=== PATIENT | male | born 1975 | race Caucasian/White ===

== ENCOUNTER 2021-12-18 15:07 | Outpatient (CLI) | payer OTHER, SELFPAY ==
--- NOTE | 2021-12-18 15:57 | XR_ITS ---
WS: [id number] Exam: XR shoulder RT min 2V* [id number] Date/Time of Exam: 12/18/2021 4:02 PM Reason For Exam: INJURY OF RIGHT SHOULDER, JOINT PAIN The projections of the shoulder reveal no fractures, anomalies, soft tissue swelling, or calcificatio ns. There is normal bony alignment. No irregularity of the bony architecture is noted. XR/XR shoulder RT min 2V* [id number] IMPRESSION: Negative right shoulder.
== END 2021-12-18 15:08 | disposition home or self-care (01) ==
LOC: RAD 15:19
PROVIDERS: Family Provider Nurse Practitioner; PCP Nurse Practitioner; Visit Provider Family Medicine
DX: S49.91XA Unspecified injury of right shoulder and upper arm, initial encounter (principal); M25.511 Pain in right shoulder; X58.XXXA Exposure to other specified factors, initial encounter
CPT/HCPCS: 73030

== ENCOUNTER 2022-01-21 10:29 | Outpatient (CLI) | payer OTHER, SELFPAY ==
--- NOTE | 2022-01-21 10:46 | MR_ITS ---
WS: [id number] MRI RIGHT SHOULDER NONCONTRAST TECHNIQUE: Sagittal T2, coronal T1, T2 and proton density imaging. Axial gradient PDE imaging. CLINICAL INFORMATION: R SHOULDER PAIN/UNSPECIFIED INJURY OF R SHOULDER UPPER ARM COMPARISON: None. FINDINGS: Moderate degenerative arthritis at the AC joint. Small amount of subacromial/subdeltoid fluid. Slight subacromial spurring. Impingement on the distal supraspinatus. Mild chronic atrophy of the distal dyer praspinatus. Tendinopathy in the distal supraspinatus. Small insertional tear involving the anterior lateral supraspinatus. Normal infraspinatus and teres minor. Normal subscapularis. Small amount of fluid in the subcoracoid bursa. Normal biceps tendon in the bicipital groove. Grossly normal glenoid labrum. MR/MR shoulder RT wo con* [id number] IMPRESSION: 1. Moderate degenerative arthritis AC joint with mild edema and mild downslopi ng of the acromion. Slight impingement distal supraspinatus with tendinopathy. Chronic thinning of the supraspinatus. 2. Small insertional tear at the anterior lateral supraspinatus. 3. Normal infraspinatus. Normal teres minor. Normal subscapularis. 4. Normal biceps tendon in the bicipital groove. 5. No other acute findings.
== END 2022-01-21 10:30 | disposition home or self-care (01) ==
PROVIDERS: PCP Nurse Practitioner; Visit Provider Family Medicine
DX: S49.91XA Unspecified injury of right shoulder and upper arm, initial encounter (principal); M25.511 Pain in right shoulder; M19.011 Primary osteoarthritis, right shoulder; M75.101 Unspecified rotator cuff tear or rupture of right shoulder, not specified as traumatic; X58.XXXA Exposure to other specified factors, initial encounter
CPT/HCPCS: 73221

== ENCOUNTER → 2022-01-31 14:25 | Outpatient (BNVA) | payer OTHER, SELFPAY | PROVIDERS: PCP Nurse Practitioner; Referring Provider Family Medicine; Visit Provider Nurse Practitioner Family | DX: M25.511 Pain in right shoulder (principal) | CPT/HCPCS: 73030 ==

== ENCOUNTER 2022-03-28 08:52 | Day surgery (SDC) | payer OTHER, SELFPAY ==
[2022-03-27 14:19] VITALS: BMI 26.2
[2022-03-28] VITALS (13 sets, daily range): BP systolic 131–149; BP diastolic 85–108; PULSE 71–98; RESP 15–18; TEMP 36.2–36.6; O2SAT 94–100
[2022-03-28] MEDS: sodium chloride 0.9% 1,000 ML 30 ML IV (09:14)
[2022-03-28] MEDS: acetaminophen 500 mg Tablet 1000 MG PO (09:17)
--- NOTE | 2022-03-28 09:30 | ANES.PREANE2 ---
Pre-Anesthetic Assessment Height/Weight: Height 1.8 m Weight 85.275 kg Temp Pulse Resp BP Pulse Ox O2 Del Method 97.6 F 71 17 149/108 100 03/28/22 09:04 03/28/22 09:04 03/28/22 09:04 03/28/22 09:04 03/28/22 09:04 03/28/22 09:04 Preop Diagnosis: Rotator cuff tear Right shoulder Operation Date: 03/28/22 10:30 Proposed Procedures p right shoulder arthroscopy with rotator cuff repair/ [id number],M75.121(Right) - Russell Martinez MD s Rotator Cuff Repair(Right) - Russell Martinez MD Familial anesthetic complications: None Was Beta Maldonado taken within 24 hours: N/A Was Clonidine taken within 24 hours: N/A Last intake: Intake Last Liquid Date 03/27/22 Last Liquid Time 19:30 Last Solid Date 03/27/22 Last Solid Time 19:30 Social Tobacco and No alcohol Exam alert, oriented x 3, clear to auscultation bilaterally and regular rate & rhythm Airway Mallampati: Class II Dentition: full Anesthetic Plan ASA status: 1 Anesthesia: General and Regional (specify below) Risk of > 500 ml blood loss (7ml/kg in children): No Medications/Allergies Home Medications Medication Instructions Recorded Confirmed Last Taken Type No Known Home Medications 03/28/22 03/28/22 Unknown History Allergies Allergy/AdvReac Type Severity Reaction Status Date / Time Penicillins Allergy Mild rash Verified 03/19/22 08:02 Current Medications Generic Name Dose Route Start Last Admin Trade Name Freq PRN Reason Stop Dose Admin Sodium Chloride 1,000 mls @ 30 mls/hr 03/28/22 09:00 03/28/22 09:14 Sodium Chloride 0.9% IV 03/29/22 08:59 30 mls/hr .Q24H JUAN Administration PFSH Anesthesia Social History Smoking and tobacco status: current every day smoker Data Anesthesia Cardiac Studies: No Data to Display
--- NOTE | 2022-03-28 09:31 | ANES.PROC ---
Anesthesia Procedures Procedure/Date: 03/28/22 Nerve Block ^: Nerve Block 1: Main Anesthesia: general anesthesia Time Out Performed: Yes Consent: requested by attending/covering physician, from patient, risks and benefits reviewed and patient agrees to proceed Nerve block location: interscalene (R) Anesthesia monitors applied: pulse oximetry Anesthetic Used: ropivicaine 0.5% (20 mg) and with decadron (4 mg) Ultrasound used to: recognize landmarks, visualize and ID brachial plexus and visualize and ID interscalene groove Nerve Stimulator Used?: No Interscalene/Femoral BLK: 2 stimuplex 22 g needle used for position and inplane approach, visualize local anesthetic spread and no vascular puncture identified Injection: neg aspiration of heme and paresthesia +/- (Patient expierenced anesthesia twice in hand w/ advancement of of needle past middle scalene. No parasthesias experience during injection) Patient Tolerated Procedure: well Complications: none
--- NOTE | 2022-03-28 09:47 | W.PM.OPSUD ---
Surgery/Procedure H&P Update DATE OF PROCEDURE: March 28, 2022 DATE H&P PERFORMED: 03/19/22 H&P UPDATE INFORMATION: I have reviewed H&P completed within last 30 days PREOP DIAGNOSIS: Rotator cuff tear Right shoulder PLANNED PROCEDURE: Operation Date: 03/28/22 10:30 Proposed Procedures p right shoulder arthroscopy with rotator cuff repair/ [id number],M75.121(Right) - Russell Martinez MD s Rotator Cuff Repair(Right) - Russell Martinez MD
[2022-03-28] MEDS: ceFAZolin 2,000 MG in sodium chloride 0.9% (plus) 50 ML 100 MG IV (10:06)
--- NOTE | 2022-03-28 12:05 | P.OP_ITS ---
Operative Report Date of procedure: March 28, 2022 Pre-op diagnosis: Preop Diagnosis Rotator cuff tear Right shoulder Post-op diagnosis: same Post-op diagnosis: Full-thickness tear right rotator cuff, instability right biceps tendon Procedure done: Arthroscopic right rotator cuff repair, arthroscopic subacromial decompression, arthroscopic assisted biceps tenodesis Implants: White and Nephew Helicoil 4.5 mm anchors x2, White and Nephew Multifix 5.5 mm anchor x1, Q fix anchors x2 Pathology: none sent Surgeon: Russell Martinez Anesthesia: General Estimated blood loss (mL): 20 Findings: The patient had a full-thickness tear of his right rotator cuff in the central portion of the supraspinatus tendon approximately a centimeter and a half from anterior to posterior with a centimeter retraction superiorly and minimal retraction articularly. The subscapularis was a free of tearing the biceps tendon could be dislocated out of the bicipital groove with a probe intra- articularly. Its attachment was healthy. His humeral head and glenoid were free of chondromalacia. Patient had a prominent curvature to his anterior acromion creating a very tight subacromial space. The decompression was accomplished to make room for the ultimate repair. Brief History: Mr. Michele is a 46-year-old male who sustained a traumatic tear of his right rotator cuff with continued pain and no weakness. An MRI suggested full- thickness tearing and subluxation of his biceps. Procedure: Mr. Michele was given a interscalene block in holding. He was taken to the operating room and given 2 g of Ancef and a general anesthesia. He was prepped and draped in the lateral position with his right shoulder exposed. A timeout was performed. The shoulder was entered through a posterior portal made 2 cm inferior medial to the posterior corner of the acromion. The scope cannula and trocar were driven into the glenohumeral joint. An anterior working portal was made just beneath the biceps tendon. The diagnostic portion arthroscopy was performed. Extensive partial-thickness articular sided tearing was identified in the central portion of the rotator cuff. This area was marked with a spinal needle. The biceps tendon was probed and could be dislocated out of the bicipital groove anteriorly. The humeral head and glenoid were free of chondromalacia and labral attachments were healthy. The biceps tendon was initially marked with a 1 PDS suture passed through a spinal needle and through the tendon and secured with several half hitch knots through the anterior portal. The White and Nephew Werewolf was then used to release the biceps from the superior labrum. The camera was then moved to the subacromial space the working portal placed anteriorly. The White and Nephew Werewolf was used to remove bursal tissue and the bursal rotator cuff tear identified. The tuberosity footprint was debrided with the incisor shaver. The patient had a very tight subacromial space with a prominence of the anterior acromion. Through the lateral portal a 5.5 mm acromionizer was introduced and approximately 4 mm of anterior and inferior acromion remove to make room for the rotator cuff repair. Through a lateral stab wound a White and Nephew Helicoil 4.5 mm anchor was placed in the anterior medial footprint. The White and Nephew FirstPass suture passer was used to shuttle 1 limb of tape through the anterior medial rotator cuff approximately 8 mm anterior and medial to the bursal edge of the tear. A second tape was passed approximately 5 mm posteriorly. A second anchor was placed in the posterior medial tuberosity footprint and the sutures passed in identical fashion again 8 mm from the edge enough to sufficiently include articular rotator cuff. These 2 sutures were secured with a sliding [place] knot and alternating half hitches drawing the medial rotator cuff to bone. A multi fix anchor was passed lateral to the debrided footprint and all 4 sutures passed through that anchor drawing the more lateral cuff to bone. Arthroscopy equipment was removed from the joint. Next a 3cm was made over the anterior axillary fold dissection carried down bluntly to the bicipital groove. The biceps tendon was retracted using the proximally placed sutures to manipulate the tendon and retracted into the wound. 2 Q fix anchors were placed in the debrided bicipital groove and secured around the biceps tendon and a luggage tag fashion and secured. Approximately 3 cm of the proximal tendon was ultimately excised. The subcutaneous tissues of the open incision were closed with 0 Vicryl and the skin with 3-0 Prolene. Portals were closed with 3-0 Prolene. The patient was placed in a sling, extubated, and taken to recovery room in stable condition.
[2022-03-28] MEDS: HYDROmorphone 1 mg/mL INJ 1 mL 0.5 MG IVP (12:20)
--- NOTE | 2022-03-28 12:51 | ANE.PACU2 ---
Inpatient post-anesthesia follow up: Airway intact: Yes Vital signs: Temperature 97.4 F Pulse Rate 80 Respiratory Rate 18 Blood Pressure 137/86 Pulse Oximetry 95 Oxygen Delivery Me thod Room Air Oxygen Flow Rate 6 Fraction of Inspir ed Oxygen Hydration adequate: Yes Nausea and vomiting: No Pain level: 1 Mental status: Baseline
[2022-03-28] MEDS: oxyCODONE 5 mg IR Tab/Cap PO (12:55)
== END 2022-03-28 13:35 | disposition home or self-care (01) ==
PROVIDERS: PCP Nurse Practitioner; Visit Provider Orthopaedic Surgery
PROC: (CPT 29805; principal; 2022-03-28 10:20)
PROC: (CPT 29826; 2022-03-28 10:20)
DX: M75.101 Unspecified rotator cuff tear or rupture of right shoulder, not specified as traumatic (principal); F17.200 Nicotine dependence, unspecified, uncomplicated
CPT/HCPCS: 29826; 29827; 29828; C1713; J1100; J1170; J2405; J2704; J2795; J3010; J3490; J7030

== ENCOUNTER 2022-04-05 06:00 | Outpatient (RCR) | payer OTHER, SELFPAY | END 2022-05-01 23:59 | disposition home or self-care (01) | LOC: TPT 06:00 | PROVIDERS: PCP Nurse Practitioner; Visit Provider Nurse Practitioner Family | DX: Z98.890 Other specified postprocedural states (principal) | CPT/HCPCS: 97110; 97140; 97162 ==

== ENCOUNTER 2022-05-02 06:00 | Outpatient (RCR) | payer OTHER, SELFPAY | END 2022-05-31 23:59 | disposition home or self-care (01) | LOC: TPT 06:00 | PROVIDERS: PCP Nurse Practitioner; Visit Provider Nurse Practitioner Family | DX: Z98.890 Other specified postprocedural states (principal) | CPT/HCPCS: 97032; 97110; 97140 ==

== ENCOUNTER 2022-06-01 06:00 | Outpatient (RCR) | payer OTHER, SELFPAY | END 2022-07-01 23:59 | disposition home or self-care (01) | LOC: TPT 06:00 | PROVIDERS: PCP Nurse Practitioner; Visit Provider Nurse Practitioner Family | DX: Z98.890 Other specified postprocedural states (principal) | CPT/HCPCS: 97110; 97140 ==

== ENCOUNTER 2022-07-02 06:00 | Outpatient (RCR) | payer OTHER, SELFPAY | END 2022-07-08 23:59 | disposition home or self-care (01) | LOC: TPT 06:00 | PROVIDERS: PCP Nurse Practitioner; Visit Provider Nurse Practitioner Family | DX: Z98.890 Other specified postprocedural states (principal) | CPT/HCPCS: 97164 ==

== ENCOUNTER → 2022-08-19 14:29 | Outpatient (BNVA) | payer OTHER, SELFPAY | PROVIDERS: PCP Nurse Practitioner; Visit Provider Nurse Practitioner Family | DX: J32.0 Chronic maxillary sinusitis (principal); R05.9 Cough, unspecified | CPT/HCPCS: 80053 ==

== ENCOUNTER → 2023-10-13 15:27 | Outpatient (BNVA) | payer OTHER, SELFPAY | PROVIDERS: PCP Nurse Practitioner; Visit Provider Nurse Practitioner Family | DX: J06.9 Acute upper respiratory infection, unspecified (principal); R05.9 Cough, unspecified; J40 Bronchitis, not specified as acute or chronic; R05.1 Acute cough | CPT/HCPCS: 80053; 85025 ==